=== PATIENT | female | born 1955 ===

== ENCOUNTER 2017-02-25 12:17 | Emergency (ER) | payer MEDICAID ==
[2017-02-25 12:18] VITALS: BMI 23.8
[2017-02-25 12:32] VITALS: BP 123/86; PULSE 84; RESP 17; TEMP 98.1; O2SAT 99
--- NOTE | 2017-02-25 12:36 | ED PDOC ---
HPI: Female Pain Time Seen by Provider: 02/25/17 12:32 Chief Complaint (Nursing): Female Genitourinary Chief Complaint (Provider): vaginal discomfort History Per: Patient Additional Complaint(s): 61-year-old female presents to emergency department with painful rash and lesion to external genitalia that she noticed about 3 days ago. Patient states that as of today she noticed some purulent discharge to same area. She denies any fever or chills. Patient denies any abdominal pain. Patient states she is not currently sexually active and has not been sexually active in over 3 years. Past Medical History Reviewed: Historical Data, Nursing Documentation, Vital Signs Vital Signs: Last Vital Signs Temp 98.1 F 02/25/17 12:30 Pulse 84 02/25/17 12:30 Resp 17 02/25/17 12:30 BP 123/86 02/25/17 12:30 Pulse Ox 99 02/25/17 12:30 - Medical History PMH: Arthritis, Asthma, Gastritis, HIV, Hypercholesterolemia, Sexually Transmitted Disease (Genital warts) - Surgical History Surgical History: Cholecystectomy, Endoscopy Other surgeries: bilateral foot surgery - Family History Family History: States: No Known Family Hx - Living Arrangements Living Arrangements: With Family - Social History Current smoker - smoking cessation education provided: No Alcohol: None Drugs: Denies - Home Medications Home Medications: Ambulatory Orders Medication Instructions Recorded Darunavir Ethanolate [Prezista] 1 tab PO DAILY 02/16/15 Dolutegravir Sodium [Tivicay] 1 tab PO DAILY 02/16/15 Famotidine [Pepcid] 20 mg PO HS #20 tab 04/14/15 Nitrofurantoin Macrocrystals 100 mg PO BID #14 cap 12/31/15 [Macrobid] Omeprazole [Prilosec] 40 mg PO DAILY 12/31/15 Phenazopyridine HCl [Pyridium] 100 mg PO TID PRN #6 tablet 12/31/15 Ritonavir [Norvir] 100 mg PO DAILY 12/31/15 traMADol [Ultram] 50 mg PO TID PRN 12/31/15 Albuterol HFA [Ventolin HFA 90 2 puff IH [id number] #1 inhaler 04/25/16 mcg/actuation (8 g)] Azithromycin [Zithromax Z-Kar] 250 mg PO DAILY #6 tab 04/25/16 predniSONE [Prednisone] 60 mg PO DAILY #15 tab 04/25/16 Naproxen [Naprosyn] 500 mg PO Q12H #20 tab 10/28/16 Doxycycline Monohydrate 100 mg PO BID #20 tablet 02/25/17 Fluconazole [Diflucan] 150 mg PO ONCE #1 tab 02/25/17 valACYclovir [Valtrex] 1 gm PO BID #20 tab 02/25/17 - Allergies Allergies/Adverse Reactions: Allergies Allergy/AdvReac Type Severity Reaction Status Date / Time Penicillins Allergy RASH Verified 04/25/16 13:43 sulfamethoxazole Allergy RASH Verified 04/25/16 13:43 [From Bactrim] trimethoprim [From Bactrim] Allergy RASH Verified 04/25/16 13:43 Review of Systems ROS Statement: Except As Marked, All Systems Reviewed And Found Negative Constitutional: Negative for: Fever, Chills Respiratory: Negative for: Cough Gastrointestinal: Negative for: Nausea, Vomiting, Abdominal Pain Genitourinary Female: Positive for: Rash (and lesion to genitalia with purulent discharge) Neurological: Negative for: Weakness, Numbness, Headache, Dizziness Physical Exam - Reviewed Nursing Documentation Reviewed: Yes Vital Signs Reviewed: Yes - Physical Exam Appears: Positive for: Well, Non-toxic, No Acute Distress Eye Exam: Positive for: Normal appearance, EOMI, PERRL Cardiovascular/Chest: Positive for: Regular Rate, Rhythm Respiratory: Positive for: Normal Breath Sounds Gastrointestinal/Abdominal: Positive for: Normal Exam, Soft. Negative for: Tenderness, Distended, Guarding, Rebound Pelvic Exam: Positive for: Other (ulcerated lesion noted to left labia majora, dried yellow drainage noted with slight crusting suspicious for herpes lesion, no active bleeding, slight swelling of left labia majora also noted, mild amount of white discharge noted to external genitalia, vaginal canal is clear with no drainage, lesions or bleeding, cervix is closed and is normal appearing) Back: Negative for: L CVA Tenderness, R CVA Tenderness Extremity: Negative for: Pedal Edema Neurologic/Psych: Positive for: Alert, Oriented - Laboratory Results Urine dip results: Positive for: Leukocyte Esterase (small), Blood (small) - ECG O2 Sat by Pulse Oximetry: 99 Pulse Ox Interpretation: Normal Medical Decision Making Medical Decision Makin61 year old with vaginal discomfort Plan: UA and culture General wound culture of vaginal lesion Herpes culture of vaginal lesion Genital culture of cervix PO motrin Lesion is suspicious for herpes but will cover for bacterial infection as well. Prescriptions given for doxycycline, Valtrex and Diflucan. Patient was advised to keep area clean and dry and was instructed to follow-up in 2-3 days with her hanger. She was instructed to take [id number] Tylenol or Motrin for pain as needed. Disposition - Clinical Impression Clinical Impression: Vaginal lesion - Patient ED Disposition Is Patient to be Admitted: No Counseled Patient/Family Regarding: Studies Performed, Diagnosis, Need For Followup, Rx Given - Disposition Referrals: Edilberto Rolle MD [Staff Provider] - Disposition: Routine/Home Disposition Time: 14:38 Condition: STABLE Additional Instructions: Take prescription meds as directed. Follow-up with hanger in 1-2 days. Prescriptions: Doxycycline Monohydrate 100 mg PO BID #20 tablet Fluconazole [Diflucan] 150 mg PO ONCE #1 tab valACYclovir [Valtrex] 1 gm PO BID #20 tab Instructions: Genital Herpes Simplex (ED), Vulvovaginal Candidiasis (ED), Vaginitis (ED) Results - Lab Results Lab Results: 02/25/17 14:15 Urine Color Yellow Urine Clarity Slighty-cloudy Urine pH 6.0 Ur Specific [place] 1.020 Urine Protein Negative Urine Glucose (UA) Neg Urine Ketones Negative Urine Blood Small Urine Nitrate Negative Urine Bilirubin Negative Urine Urobilinogen 0.2-1.0 Ur Leukocyte Esterase Mod Urine RBC (Auto) 34 H Urine Microscopic WBC 4 Ur Squamous Epith Cells 2
[2017-02-25 14:33] LABS: URINE BILIRUBIN NEGATIVE (NEGATIVE); URINE BLOOD SMALL (NEGATIVE); URINE COLOR YELLOW (YELLOW); URINE GLUCOSE (UA) NEG (Normal); URINE KETONE NEGATIVE (NEGATIVE)
[2017-02-25 14:34] LABS: RBC URINE 34 /hpf (0-3); URINE LEUKOCYTE ESTERASE MOD Leu/uL (Negative); URINE PROTEIN NEGATIVE (NEGATIVE); URINE UROBILINOGEN 0.2-1.0 mg/dL (0.2-1.0); WBC URINE 4 /hpf (0-5)
== END 2017-02-25 15:05 | disposition home or self-care (01) ==
LOC: H.ER 12:17
DX: A60.00 Herpesviral infection of urogenital system, unspecified (principal)

== ENCOUNTER 2017-05-07 14:50 | Emergency (ER) | payer MEDICAID ==
[2017-05-07 14:51] VITALS: BMI 23.8
[2017-05-07 14:59] VITALS: BP 166/76; PULSE 98; RESP 18; TEMP 98.6; O2SAT 99
--- NOTE | 2017-05-07 15:56 | ED PDOC ---
HPI: CCC, URI, Sore Throat Time Seen by Provider: 05/07/17 15:10 Chief Complaint (Nursing): Cough, Cold, Congestion Chief Complaint (Provider): cough History Per: Patient History/Exam Limitations: no limitations Additional Complaint(s): 62yo F in ED for eval of cough x 2 weeks states that she has been coughing with green sputum , fever, malaise, sore throat. Past Medical History Vital Signs: Last Vital Signs Temp 98.6 F 05/07/17 14:57 Pulse 98 H 05/07/17 14:57 Resp 18 05/07/17 14:57 BP 166/76 H 05/07/17 14:57 Pulse Ox 99 05/07/17 15:56 - Medical History PMH: Arthritis, Asthma, Gastritis, HIV, Hypercholesterolemia, Pneumonia (03/2014 ), Sexually Transmitted Disease (Genital warts) Denies: Chronic Kidney Disease - Surgical History Surgical History: Cholecystectomy, Endoscopy - Family History Family History: States: Unknown Family Hx - Immunization History Hx Tetanus Toxoid Vaccination: No Hx Influenza Vaccination: No Hx Pneumococcal Vaccination: No - Home Medications Home Medications: Ambulatory Orders Medication Instructions Recorded Darunavir Ethanolate [Prezista] 1 tab PO DAILY 02/16/15 Dolutegravir Sodium [Tivicay] 1 tab PO DAILY 02/16/15 Famotidine [Pepcid] 20 mg PO HS #20 tab 04/14/15 Nitrofurantoin Macrocrystals 100 mg PO BID #14 cap 12/31/15 [Macrobid] Omeprazole [Prilosec] 40 mg PO DAILY 12/31/15 Phenazopyridine HCl [Pyridium] 100 mg PO TID PRN #6 tablet 12/31/15 Ritonavir [Norvir] 100 mg PO DAILY 12/31/15 traMADol [Ultram] 50 mg PO TID PRN 12/31/15 Albuterol HFA [Ventolin HFA 90 2 puff IH [id number] #1 inhaler 04/25/16 mcg/actuation (8 g)] Azithromycin [Zithromax Z-Kar] 250 mg PO DAILY #6 tab 04/25/16 predniSONE [Prednisone] 60 mg PO DAILY #15 tab 04/25/16 Naproxen [Naprosyn] 500 mg PO Q12H #20 tab 10/28/16 Doxycycline Monohydrate 100 mg PO BID #20 tablet 02/25/17 Fluconazole [Diflucan] 150 mg PO ONCE #1 tab 02/25/17 valACYclovir [Valtrex] 1 gm PO BID #20 tab 02/25/17 Azithromycin [Zithromax] 250 mg PO DAILY #6 tab 05/07/17 Guaifenesin [Mucinex] 600 mg PO BID #14 tab.er.12h 05/07/17 - Allergies Allergies/Adverse Reactions: Allergies Allergy/AdvReac Type Severity Reaction Status Date / Time Penicillins Allergy RASH Verified 04/25/16 13:43 sulfamethoxazole Allergy RASH Verified 04/25/16 13:43 [From Bactrim] trimethoprim [From Bactrim] Allergy RASH Verified 04/25/16 13:43 - ECG O2 Sat by Pulse Oximetry: 99 Disposition - Clinical Impression Clinical Impression: Cough, Bronchitis - Patient ED Disposition Is Patient to be Admitted: No Counseled Patient/Family Regarding: Diagnosis, Need For Followup, Rx Given - Disposition Disposition: Routine/Home Disposition Time: 15:57 Condition: STABLE Prescriptions: Azithromycin [Zithromax] 250 mg PO DAILY #6 tab Guaifenesin [Mucinex] 600 mg PO BID #14 tab.er.12h Instructions: Asthma (ED), Acute Bronchitis (ED) Forms: [employer] ([place])
[2017-05-07] MEDS ORDERED: Albuterol 0.083% Inhal Sol (2.5 mg/3 mL) UD INH STA (16:01)
--- NOTE | 2017-05-07 16:29 | RAD ---
HISTORY: cough COMPARISON: No prior. TECHNIQUE: Chest PA and lateral FINDINGS: LUNGS: Lung cool appear slightly overinflated No acute infiltrates. Questionable minimal bibasilar atelectasis. . Biapical pleural thickening. PLEURA: No significant pleural effusion identified. No pneumothorax apparent. CARDIOVASCULAR: Heart size within range of normal OSSEOUS STRUCTURES: Minor multilevel degenerative spondylosis of the thoracic spine minor chronic anterior wedge deformities of a few upper thoracic segments VISUALIZED UPPER ABDOMEN: Metallic clips right upper quadrant gliotic consistent prior cholecystectomy OTHER FINDINGS: None. IMPRESSION: Lungs cool appear slightly overinflated. Suspect minimal bibasilar atelectasis. Mild biapical pleural thickening.
== END 2017-05-07 16:19 | disposition home or self-care (01) ==
LOC: H.ER 14:50
DX: J45.909 Unspecified asthma, uncomplicated (principal); J20.9 Acute bronchitis, unspecified; Z88.0 Allergy status to penicillin

== ENCOUNTER 2018-06-07 14:09 | Emergency (ER) | payer MEDICAID ==
[2018-06-07 14:10] VITALS: BMI 23.8
[2018-06-07 14:20] VITALS: BP 120/72; PULSE 74; RESP 16; TEMP 98.4; O2SAT 97
--- NOTE | 2018-06-07 14:51 | ED PDOC ---
Lower Extremity Pain/Injury Time Seen by Provider: 06/07/18 14:26 Chief Complaint (Nursing): Lower Extremity Problem/Injury Chief Complaint (Provider): Lower Extremity Problem/Injury History Per: Patient History/Exam Limitations: no limitations Additional Complaint(s): Patient is a 63 y/o female who presents to the ED complaining of pain to her left big toe, onset x3 days ago. Patient reports that she got a pedicure a few weeks ago and was experiencing mild discomfort to the edge of her toenail. x3 days ago, she tried to cut the nail down but that made the pain worse. She denies fever, chills, or any drainage. Past Medical History Reviewed: Historical Data, Nursing Documentation, Vital Signs Vital Signs: Last Vital Signs Temp 98.4 F 06/07/18 14: Pulse 74 06/07/18 14:18 Resp 16 06/07/18 14:18 BP 120/72 06/07/18 14:18 Pulse Ox 97 06/07/18 14:18 - Medical History PMH: Arthritis, Asthma, Gastritis, HIV, Hypercholesterolemia, Pneumonia (03/2014), Sexually Transmitted Disease (Genital warts) Denies: Chronic Kidney Disease - Surgical History Surgical History: Cholecystectomy, Endoscopy - Family History Family History: States: Unknown Family Hx - Immunization History Hx Tetanus Toxoid Vaccination: No Hx Influenza Vaccination: No Hx Pneumococcal Vaccination: No - Home Medications Home Medications: Ambulatory Orders Medication Instructions Recorded Darunavir Ethanolate [Prezista] 1 tab PO DAILY 02/16/15 Dolutegravir Sodium [Tivicay] 1 tab PO DAILY 02/16/15 Famotidine [Pepcid] 20 mg PO HS #20 tab 04/14/15 Nitrofurantoin Macrocrystals 100 mg PO BID #14 cap 12/31/15 [Macrobid] Omeprazole [Prilosec] 40 mg PO DAILY 12/31/15 Phenazopyridine HCl [Pyridium] 100 mg PO TID PRN #6 tablet 12/31/15 Ritonavir [Norvir] 100 mg PO DAILY 12/31/15 traMADol [Ultram] 50 mg PO TID PRN 12/31/15 Albuterol HFA [Ventolin HFA 90 2 puff IH [id number] #1 inhaler 04/25/16 mcg/actuation (8 g)] Azithromycin [Zithromax Z-Kar] 250 mg PO DAILY #6 tab 04/25/16 predniSONE [Prednisone] 60 mg PO DAILY #15 tab 04/25/16 Naproxen [Naprosyn] 500 mg PO Q12H #20 tab 10/28/16 Doxycycline Monohydrate 100 mg PO BID #20 tablet 02/25/17 Fluconazole [Diflucan] 150 mg PO ONCE #1 tab 02/25/17 valACYclovir [Valtrex] 1 gm PO BID #20 tab 02/25/17 Azithromycin [Zithromax] 250 mg PO DAILY #6 tab 05/07/17 Guaifenesin [Mucinex] 600 mg PO BID #14 tab.er.12h 05/07/17 Clindamycin [Cleocin] 300 mg PO QID #40 cap 06/07/18 - Allergies Allergies/Adverse Reactions: Allergies Allergy/AdvReac Type Severity Reaction Status Date / Time Penicillins Allergy RASH Verified 04/25/16 13:43 sulfamethoxazole Allergy RASH Verified 04/25/16 13:43 [From Bactrim] trimethoprim [From Bactrim] Allergy RASH Verified 04/25/16 13:43 Review of Systems ROS Statement: Except As Marked, All Systems Reviewed And Found Negative Constitutional: Negative for: Fever, Chills Musculoskeletal: Positive for: Foot Pain (left big toe) Physical Exam - Reviewed Nursing Documentation Reviewed: Yes Vital Signs Reviewed: Yes - Physical Exam Appears: Positive for: Non-toxic, No Acute Distress Head Exam: Positive for: ATRAUMATIC, NORMOCEPHALIC Skin: Positive for: Normal Color, Warm, DRY Eye Exam: Positive for: EOMI, Normal appearance, PERRL Cardiovascular/Chest: Positive for: Regular Rate, Rhythm. Negative for: Murmur, Bradycardia, Tachycardia Respiratory: Positive for: Normal Breath Sounds. Negative for: Respiratory Distress Extremity: Positive for: Normal ROM, Tenderness (medial nail fold of left great toe), Other (mild erythema to medial nail fold of left great toe). Negative for: Pedal Edema, Deformity Neurologic/Psych: Positive for: Alert, Oriented. Negative for: Motor/Sensory Deficits - ECG O2 Sat by Pulse Oximetry: 97 (RA) Pulse Ox Interpretation: Normal Medical Decision Making Medical Decision Making: Time: 14:26 Initial Impression: pain to left great toe Initial Plan: --observation --reevaluation Time: 14:50 Upon provider evaluation patient is medically stable, and requires no further treatment in the ED at this time. Patient will be discharged home with Rx for Clindamycin. Counseling was provided and all questions were answered regarding diagnosis and need for follow up with PMD. There is agreement to discharge plan. Return if symptoms persist or worsen. Scribe Attestation: Documented by Dragan Hunter, acting as a scribe for Arlin Blackwell PA-C. Provider Scribe Attestation: All medical record entries made by the Scribe were at my direction and personally dictated by me. I have reviewed the chart and agree that the record accurately reflects my personal performance of the history, physical exam, medical decision making, and the department course for this patient. I have also personally directed, reviewed, and agree with the discharge instructions and disposition. Disposition - Clinical Impression Clinical Impression: Ingrown nail of great toe of left foot - Patient ED Disposition Is Patient to be Admitted: No Counseled Patient/Family Regarding: Diagnosis, Need For Followup, Rx Given - Disposition Referrals: Podiatry Clinic [Outside] Disposition: Routine/Home Disposition Time: 14:50 Condition: GOOD Additional Instructions: VERNELL HOYT, thank you for letting us take care of you today. Your provider was yRley Rosa MD and you were treated for TOE PAIN. The emergency medical care you received today was directed at your acute symptoms. If you were prescribed any medication, please fill it and take as directed. It may take several days for your symptoms to resolve. Return to the Emergency Department if your symptoms worsen, do not improve, or if you have any other problems. Please contact your doctor or call one of the physicians/clinics you have been referred to that are listed on the Patient Visit Information form that is included in your discharge packet. Bring any paperwork you were given at discharge with you along with any medications you are taking to your follow up visit. Our treatment cannot replace ongoing medical care by a primary care provider outside of the emergency department. Thank you for allowing the [email or web address] team to be part of your care today. If you had an X-Ray or CT scan: A Radiologist will review the ED reading if any change in treatment is needed we will contact you. If you had a blood, urine, or wound culture: It will take several days for the results, if any change in treatment is needed we will contact you. If you had an STI test: It will take 48 hours for the results. Please call after 1 week if you have not heard back. Prescriptions: Clindamycin [Cleocin] 300 mg PO QID #40 cap Instructions: Hyacinth Lynne (DC) Forms: [employer] (Khmer)
== END 2018-06-07 15:43 | disposition home or self-care (01) ==
LOC: H.ER 14:09
DX: L60.0 Ingrowing nail (principal); Z88.0 Allergy status to penicillin